=== PATIENT | male | born 1980 | race African-American/Black ===

== ENCOUNTER 2018-02-07 13:34 | Inpatient (IN) | payer OTHER ==
[2018-02-07 15:17] VITALS: BMI 16.4
--- NOTE | 2018-02-07 15:53 | HP ---
CIWA Score - CIWA Score Headache: 2-Mild Admission ROS BHS - HPI Chief Complaint: i need help to stop drinking alcohol Allergies/Adverse Reactions: Allergies Allergy/AdvReac Type Severity Reaction Status Date / Time fish derived Allergy Intermediate Itching Verified 02/07/18 15:46 No Known Drug Allergies Allergy Verified 02/07/18 15:46 History of Present Illness: this 37 years old male with alcohol dependence,seeking detox, withdrawal symptom ,last detox [facility] 01/28/14 t 01/29/14 not completed schizophrenia on med weight loss nicotine dependence low back pain schizophrenia longest period of sobriety 6 months Exam Limitations: No Limitations - Ebola screening Have you traveled outside of the country in the last 21 days: No Have you had contact with anyone from an Ebola affected area: No Have you been sick,other than usual withdrawal symptoms: No Do you have a fever: No - Review of Systems Constitutional: No Symptoms Reported EENT: reports: No Symptoms Reported Respiratory: reports: No Symptoms reported Cardiac: reports: No Symptoms Reported GI: reports: No Symptoms Reported : reports: No Symptoms Reported Musculoskeletal: reports: No Symptoms Reported Integumentary: reports: No Symptoms Reported Neuro: reports: No Symptoms reported Endocrine: reports: No Symptoms Reported Hematology: reports: No Symptoms Reported Psychiatric: reports: No Sypmtoms Reported (schizophrenia) Patient History - Patient Medical History Hx Anemia: No Hx Asthma: No Hx Chronic Obstructive Pulmonary Disease (COPD): No Hx Cancer: No Hx Cardiac Disorders: No Hx Congestive Heart Failure: No Hx Hypertension: No Hx Hypercholesterolemia: No Hx Pacemaker: No HX Cerebrovascular Accident: No Hx Seizures: No Hx Dementia: No Hx Diabetes: No Hx Gastrointestinal Disorders: No Hx Liver Disease: No Hx Genitourinary Disorders: No Hx Sexually Transmitted Disorders: No Hx Renal Disease (ESRD): No Hx Thyroid Disease: No Hx Human Immunodeficiency Virus (HIV): No (last 09/11) Hx Hepatitis C: No Hx Depression: Yes Hx Suicide Attempt: No Hx Bipolar Disorder: No Hx Schizophrenia: Yes Other Medical History: no suicidal,no homicidal - Patient Surgical History Past Surgical History: No - PPD History Previous Implant?: Yes Documented Results: Negative w/o proof PPD to be Administered?: Yes - Smoking Cessation Smoking history: Current every day smoker Have you smoked in the past 12 months: Yes Aproximately how many cigarettes per day: 8 Hx Chewing Tobacco Use: No Initiated information on smoking cessation: Yes 'Breaking Loose' booklet given: 02/07/18 - Substance & Tx. History Hx Alcohol Use: Yes Hx Substance Use: No Substance Use Type: Alcohol Hx [facility]stance [facility] not completed) Family Disease History - Family Disease History Family History: Denies Admission Physical Exam [facility] - Vital Signs Vital Signs: Vital Signs - 24 hr 02/07/18 15:16 Temperature 98 F Pulse Rate 100 H Respiratory 20 Rate Blood Pressure 109/76 - Physical General Appearance: Yes: Within Normal Limits HEENTM: Yes: Hearing grossly Normal, Normal ENT Inspection, Pharynx Normal Respiratory: Yes: Lungs Clear, Normal Breath Sounds, No Respiratory Distress Neck: Yes: Within Normal Limits Breast: Yes: Within Normal Limits Cardiology: Yes: Within Normal Limits, Regular Rhythm, Regular Rate, S1, S2 Abdominal: Yes: Within Normal Limits, Normal Bowel Sounds, Non Tender, Flat, Soft Genitourinary: Yes: Within Normal Limits Back: Yes: Within Normal Limits Musculoskeletal: Yes: Within Normal Limits Extremities: Yes: Within Normal Limits 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: 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: 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, Fully Oriented, Alert, Motor Strength 5/5 Integumentary: Yes: Within Normal Limits Lymphatic: Yes: Within Normal Limits - Diagnostic (1) Alcohol dependence Current Visit: No Status: Acute (2) Schizophrenia Current Visit: Yes Status: Acute (3) Weight loss Current Visit: Yes Status: Acute (4) Nicotine dependence Current Visit: Yes Status: Acute Cleared for Admission [facility] - Detox or Rehab Claeared for Rehab Admission: Yes [facility] Breath Alcohol Content Breath Alcohol Content: 0 Urine Drug Screen - Results Drug Screen Negative: Yes Inpatient Rehab Admission - Initial Determination Are CD services needed?: Yes Free of communicable disease: Yes Not in need of hospitalization: Yes - Rehab Admission Criteria Previous failed treatment: Yes Poor recovery environment: Yes Comorbidities: Yes Lacks judgement: No Patient is meeting Inpatient Rehab admission criteria:: Yes
[2018-02-07] MEDS ORDERED: LOPERAMIDE HCL 2 MG CAPSULE PO PRN (16:10)
[2018-02-07] MEDS ORDERED: hydrOXYzine PAMOATE 50 MG CAPSULE (FP) PO PRN (16:10)
[2018-02-07] MEDS ORDERED: MAG HYDROX/AL HYDROX/SIMETH 30 ML UNIT-DOSE CUP PO PRN (16:10)
[2018-02-07] MEDS ORDERED: MENTHOL/PHENOL 1 EACH UD MM PRN (16:10)
[2018-02-07] MEDS ORDERED: ACETAMINOPHEN 325 MG TABLET (FP) PO PRN (16:10)
[2018-02-07] MEDS ORDERED: MAGNESIUM HYDROX 2400MG/30ML ORAL SUSPENSION 30 ML CUP PO PRN (16:10)
[2018-02-07] MEDS ORDERED: MAGNESIUM CITRATE 300 ML BOTTLE PO PRN (16:10)
[2018-02-07] MEDS ORDERED: IBUPROFEN 400 MG TABLET (FP) PO PRN (16:10)
[2018-02-07] MEDS ORDERED: P-EPHED 60MG/TRIPROLIDI 2.5MG TABLET PO PRN (16:10)
[2018-02-07] MEDS ORDERED: guaiFENesin/D-METHORPHAN HB 10 ML UNIT-DOSE CUPS PO PRN (16:10)
[2018-02-07] MEDS ORDERED: TUBERCULIN PPD 5 TU/0.1ML VIAL ID ONE (17:20)
[2018-02-07] MEDS: THIAMINE HCL 100 MG TABLET (FP) PO SCH (21:11)
[2018-02-07] MEDS ORDERED: MELATONIN 5 MG TABLETS PO PRN (22:00)
[2018-02-07 23:19] LABS: URINE APPEARANCE CLEAR; URINE BILIRUBIN NEGATIVE (<2.0 mg/dL); URINE COLOR LTYELLOW; URINE GLUCOSE (UA) NEGATIVE (NEGATIVE); URINE KETONE NEGATIVE (NEGATIVE); URINE LEUK ESTERASE NEGATIVE (NEGATIVE); URINE NITRITE NEGATIVE (NEGATIVE); URINE PROTEIN NEGATIVE (NEGATIVE); URINE UROBILINOGEN NEGATIVE mg/dL (0.2-1.0)
--- NOTE | 2018-02-07 23:20 | PN ---
[facility] Progress Note Note: asymptomatic abnormal ekg Vital Signs Temperature 98.1 F 02/07/18 17:39 Pulse Rate 90 02/07/18 17:39 Respiratory Rate 18 02/07/18 17:39 Blood Pressure 115/69 02/07/18 17:39 O2 Sat by Pulse Oximetry (%) Increase fluids repeat EKG in the AM Continue to monitor
[2018-02-08 06:46] VITALS: BP 94/67; PULSE 105; TEMP 98.8
[2018-02-08] MEDS: PRENATAL VITAMINS W/ FOLIC ACID TABLET (FP) PO SCH ×2 (10:00→11:39)
--- NOTE | 2018-02-08 12:03 | EKG ---
Test Reason : Blood Pressure : / mmHG Vent. Rate : 077 BPM Atrial Rate : 077 BPM P-R Int : 174 ms QRS Dur : 088 ms QT Int : 336 ms P-R-T Axes : 009 -16 -05 degrees QTc Int : 380 ms NORMAL SINUS RHYTHM VOLTAGE CRITERIA FOR LEFT VENTRICULAR HYPERTROPHY ST ELEVATION, CONSIDER EARLY REPOLARIZATION, PERICARDITIS, OR INJURY ABNORMAL ECG NO PREVIOUS ECGS AVAILABLE Confirmed by JODIE NASH MD ([id number]) on 02/08/2018 12:03:12 PM Referred By: Confirmed By:JODIE NASH MD
--- NOTE | 2018-02-08 12:09 | HP ---
Psychiatrist Admission - Data Date of interview: 02/08/18 Admission source: [facility] Identifying data: This is the second 5N inpatient rehabilitation admsision for this 37 year old AA male father of 2(7 and 6), unemployed and supported on SSI, residing with his C/L and 2 children in the [place]. Medical History: low back pain, weight loss, smokes cigarettes 1 PPD. Psychiatric History: PAtient reports was diagnosed with SChizophrenia, reports 4 -5 psychiatric hospitalizations with most recent in 2015, to address deperssed mood in context of alcohol use. Patient reports he belongs to [facility] team and currently on Invega Sustenna 156mg IM every 3 months, last injectin 01/31/18 as a self report. Physical/Sexual Abuse/Trauma History: Denies history of abuse. Vital Signs: Vital Signs - 24 hr 02/07/18 02/07/18 02/08/18 15:16 17:39 00:30 Temperature 98 F 98.1 F Pulse Rate 100 H 90 Respiratory 20 18 18 Rate Blood Pressure 109/76 115/69 02/08/18 02/08/18 03:30 06:45 Temperature 98.8 F Pulse Rate 105 H Respiratory 18 16 Rate Blood Pressure 94/67 Allergies/Adverse Reactions: Allergies Allergy/AdvReac Type Severity Reaction Status Date / Time fish derived Allergy Intermediate Itching Verified 02/07/18 15:46 No Known Drug Allergies Allergy Verified 02/07/18 15:46 Date of last physical exam: 02/07/18 Concur with the findings of this exam: Yes - Substance Abuse/Tx History Hx Alcohol Use: Yes Hx Substance Use: No Substance Use Type: Alcohol (daily liquor) Hx Substance Use Treatment: Yes Mental Status Exam - Mental Status Exam Alert and Oriented to: Time, Place, Person Cognitive Function: Grossly Intact Patient Appearance: Well Groomed Mood: Hopeful Affect: Appropriate, Mood Congruent Patient Behavior: Appropriate, Cooperative Speech Pattern: Appropriate Voice Loudness: Normal Thought Process: Goal Oriented Thought Disorder: Not Present Hallucinations: Denies, Auditory (past history, denies now) Suicidal Ideation: Denies Homicidal Ideation: Denies Insight/Judgement: Fair Sleep: Fair Appetite: Fair, Weight loss Muscle strength/Tone: Normal Gait/Station: Normal Psychiatric Findings - Problem List ([place] 1, 2,3) (1) Nicotine dependence Current Visit: Yes Status: Acute (2) Schizophrenia Current Visit: Yes Status: Acute (3) Alcohol dependence Current Visit: No Status: Acute - Initial Treatment Plan Initial Treatment Plan: will monitor progress as needed.
--- NOTE | 2018-02-08 14:32 | EKG ---
Test Reason : Blood Pressure : / mmHG Vent. Rate : 073 BPM Atrial Rate : 073 BPM P-R Int : 146 ms QRS Dur : 088 ms QT Int : 354 ms P-R-T Axes : 057 072 061 degrees QTc Int : 389 ms NORMAL SINUS RHYTHM ST ELEVATION, CONSIDER EARLY REPOLARIZATION BORDERLINE ECG WHEN COMPARED WITH ECG OF 07-FEB-2018 22:13, QUESTIONABLE CHANGE IN QRS AXIS ST ELEVATION NOW PRESENT IN INFERIOR LEADS T WAVE INVERSION NO LONGER EVIDENT IN INFERIOR LEADS Confirmed by JODIE NASH MD ([id number]) on 02/08/2018 2:31:36 PM Referred By: Zora BRISENO Confirmed By:JODIE NASH MD
[2018-02-08 16:05] LABS: HEMATOCRIT 30.8 % (35.4-49); HEMOGLOBIN 10.2 GM/dL (11.7-16.9); MCH 26.4 pg (25.7-33.7); MCHC 33.1 g/dl (32.0-35.9); PLATELET COUNT 360 K/MM3 (134-434); RBC 3.85 M/mm3 (4.00-5.60); RDW 15.5 % (11.9-15.9); WHITE BLOOD COUNT 5.7 K/mm3 (4.0-10.0)
[2018-02-08 16:37] LABS: CHLORIDE 102 mmol/L (98-107); POTASSIUM 4.6 mmol/L (3.5-5.1); SODIUM 136 mmol/L (136-145)
[2018-02-08 17:07] LABS: ALBUMIN 2.5 g/dl (3.4-5.0); ALK PHOS 158 U/L (45-117); ANION GAP 9 (8-16); BILIRUBIN,TOTAL 0.4 mg/dL (0.2-1.0); BLOOD UREA NITROGEN 8 mg/dL (7-18); CALCIUM 8.5 mg/dL (8.5-10.1); CO2 25 mmol/L (21-32); CREATININE 0.7 mg/dL (0.7-1.3); GLUCOSE,RANDOM 84 mg/dL (74-106); SGOT/AST 9 U/L (15-37); SGPT/ALT 7 U/L (12-78); TOT PROT 8.5 g/dl (6.4-8.2)
[2018-02-08] MEDS: THIAMINE HCL 100 MG TABLET (FP) PO SCH (21:46)
--- NOTE | 2018-02-09 12:17 | PN ---
[facility] Progress Note Note: it was reported this morning that patient signed out ama from the treatment on in evening shift,please see medical staff notes.
== END 2018-02-08 22:10 | disposition left against medical advice (07) | DRG 894 ==
LOC: YASAS 13:34 → Y5N 15:59
PROVIDERS: ADMIT Psychiatry & Neurology Psychiatry; ATTEND Psychiatry & Neurology Psychiatry
PROC: HZ42ZZZ Group Counseling for Substance Abuse Treatment, Cognitive-Behavioral (ICD-10-PCS; principal; 2018-02-07)
DX: F10.20 Alcohol dependence, uncomplicated (principal); F17.210 Nicotine dependence, cigarettes, uncomplicated; F20.9 Schizophrenia, unspecified; R94.31 Abnormal electrocardiogram [ECG] [EKG]; Z87.898 Personal history of other specified conditions; Z91.013 Allergy to seafood
CPT/HCPCS: 36415; 80053; 81003; 85027; 86593; 93005; 93010

== ENCOUNTER 2024-06-26 14:27 | Inpatient (IN) | payer OTHER ==
[2024-06-26 15:14] VITALS: BMI 18.7
[2024-06-26] MEDS ORDERED: ACETAMINOPHEN 325 MG TABLET (FP) PO PRN (15:40)
[2024-06-26] MEDS ORDERED: POLYETHYLENE GLYCOL (HEALTHYLAX) 3350 17 GM PACKET PO PRN (15:40)
[2024-06-26] MEDS ORDERED: NICOTINE POLACRILEX 2 MG GUM BUC PRN (15:40)
[2024-06-26] MEDS ORDERED: MAGNESIUM HYDROX 2400MG/30ML ORAL SUSPENSION 30 ML CUP PO PRN (15:40)
[2024-06-26] MEDS ORDERED: NICOTINE POLACRILEX 2 MG LOZENGE BC PRN (15:40)
[2024-06-26] MEDS ORDERED: guaiFENesin 600 MG TABLET.ER (FP) PO PRN (15:40)
[2024-06-26] MEDS ORDERED: IBUPROFEN 600 MG TABLET (FP) PO PRN (15:40)
[2024-06-26] MEDS ORDERED: LOPERAMIDE HCL 2 MG CAPSULE PO PRN (15:40)
[2024-06-26] MEDS ORDERED: BENZONATATE 200 MG CAPSULE PO PRN (15:40)
[2024-06-26] MEDS ORDERED: IBUPROFEN 400 MG TABLET (FP) PO PRN (15:40)
[2024-06-26] MEDS ORDERED: MAG HYDROX/AL HYDROX/SIMETH 30 ML UNIT-DOSE CUP PO PRN (15:40)
[2024-06-26] MEDS ORDERED: hydrOXYzine PAMOATE 25 MG CAPSULE (FP) PO PRN (15:40)
[2024-06-26] MEDS ORDERED: BENZOCAINE/MENTHOL (CHLORASEPTIC ) LOZENGE MM PRN (15:40)
[2024-06-26] MEDS: MELATONIN 5 MG TABLETS PO SCH (22:21)
[2024-06-26] MEDS: THIAMINE 100 MG TABLET PO SCH (22:21)
[2024-06-27] MEDS: PRENATAL VITAMINS W/ FOLIC ACID TABLET (FP) PO SCH (10:44)
[2024-06-27 12:11] LABS: HEMATOCRIT 43.2 % (35.4-49); HEMOGLOBIN 14.4 GM/dL (11.7-16.9); MCH 30.1 pg (25.7-33.7); MCHC 33.4 g/dl (32.0-35.9); MEAN PLT VOLUME 8.3 fl (7.5-11.1); PLATELET COUNT 300 10^3/uL (134-434); RDW 17.2 % (11.9-15.9); WHITE BLOOD COUNT 5.6 K/mm3 (4.0-10.0)
[2024-06-27] MEDS: FLU VACCINE (FLULAVAL) PF 45 MCG/0.5 ML SYRINGE 2024-2025 IM ONE (12:57)
[2024-06-27 13:23] LABS: SYPHILIS W/ RPR CONF NON-REACTIVE (NONREACTIVE)
[2024-06-27 16:30] LABS: ALBUMIN 2.8 g/dl (3.4-5.0); ALK PHOS 164 U/L (45-117); ANION GAP 7 mmol/L (4-13); BILIRUBIN,TOTAL 0.6 mg/dL (0.2-1); BLOOD UREA NITROGEN 14.2 mg/dL (7-18); CALCIUM 9.5 mg/dL (8.5-10.1); CHLORIDE 102 mmol/L (98-107); CO2 27 mmol/L (21-32); CREATININE 0.9 mg/dL (0.55-1.3); GLUCOSE,RANDOM 149 mg/dL (74-106); POTASSIUM 4.2 mmol/L (3.5-5.1); SGOT/AST 13 U/L (15-37); SGPT/ALT 13 U/L (13-61); SODIUM 136 mmol/L (136-145)
[2024-06-29] MEDS ORDERED: NALOXONE (NYS OPIOID OVERDOSE PROGRAM) 4 MG/0.1 ML SPRAY NS PRN (14:51)
[2024-06-29] MEDS: NALOXONE (NYS OPIOID OVERDOSE PROGRAM) 4 MG/0.1 ML SPRAY NS ONE (16:03)
[2024-06-30 06:59] VITALS: BP 115/66; PULSE 66; RESP 16; TEMP 97.7
== END 2024-06-30 18:30 | disposition left against medical advice (07) | DRG 895 ==
LOC: YASAS 14:27 → Y3W 17:06 → EDBD 17:06
PROVIDERS: ADMIT Allergy & Immunology; ATTEND Psychiatry & Neurology Pain Medicine
PROC: HZ42ZZZ Group Counseling for Substance Abuse Treatment, Cognitive-Behavioral (ICD-10-PCS; principal; 2024-06-26)
DX: F10.20 Alcohol dependence, uncomplicated (principal); F14.20 Cocaine dependence, uncomplicated; Z59.00 Homelessness unspecified; F17.210 Nicotine dependence, cigarettes, uncomplicated; F25.9 Schizoaffective disorder, unspecified; F91.8 Other conduct disorders; Z91.199 Patient's noncompliance with other medical treatment and regimen due to unspecified reason; Z56.0 Unemployment, unspecified
CPT/HCPCS: 36415; 80053; 80305; 80307; 82962; 85027; 86780; 86803; 90656; 93005; 93010; G0008